=== PATIENT | female | born 1965 | race Caucasian/White ===

== ENCOUNTER 2017-11-02 08:11 | Emergency (ER) | payer OTHER ==
[2017-11-02] MEDS ORDERED: Albuterol/Ipratropium 3.0-0.5 MG/3 ML Neb Soln NEB ONE (08:33)
--- NOTE | 2017-11-02 08:52 | EDM.PDOC ---
ED HPI GENERAL MEDICAL PROBLEM - General Chief Complaint: Respiratory Problem Stated Complaint: BREATHING ISSUES Time Seen by Provider: 11/02/17 08:30 Source of Information: Reports: Patient, Family History Limitations: Reports: No Limitations - History of Present Illness INITIAL COMMENTS - FREE TEXT/NARRATIVE: 52-year-old female smoker who has a tendency towards reactive airway disease but not diagnosed with asthma caught a cold 3 or 4 days ago and it has worked its way into her lungs and she is having difficulty breathing. No fevers or chills. Cough is nonproductive. Denies sore throat but does have a congested nose and generalized malaise. Onset: Gradual (Over the past 4 days) Severity: Mild Associated Symptoms: Reports: Cough, Shortness of Breath. Denies: Fever/Chills , Nausea/Vomiting - Related Data Allergies Allergy/AdvReac Type Severity Reaction Status Date / Time No Known Allergies Allergy Verified 11/02/17 08:18 Home Meds: Home Meds NK [No Known Home Meds] 11/02/17 [History] Past Medical History - Past Health History Medical/Surgical History: Denies Medical/Surgical History Social & Family History - Tobacco Use Smoking Status *Q: Current Every Day Smoker Years of Tobacco use: 30 Packs/Tins Daily: 1 - Alcohol Use Number of Drinks Per Day: 3 - Recreational Drug Use Recreational Drug Use: No ED ROS GENERAL - Review of Systems Review Of Systems: See Below Constitutional: Reports: Chills, Malaise. Denies: Fever HEENT: Reports: Sinus Problem. Denies: Ear Pain Respiratory: Reports: Shortness of Breath, Cough Cardiovascular: Denies: Chest Pain GI/Abdominal: Denies: Abdominal Pain, Nausea, Vomiting Neurological: Denies: Headache ED EXAM, GENERAL - Physical Exam Exam: See Below Exam Limited By: No Limitations General Appearance: Alert, Mild Distress (Patient is fairly short of breath with some increased work of breathing, O2 sats 91%) Throat/Mouth: Normal Inspection Head: Atraumatic Respiratory/Chest: Wheezing (Diffuse inspiratory next very wheezing is present.) Cardiovascular: Regular Rate, Rhythm Neurological: Alert, Oriented Course - Vital Signs Last Recorded V/S: Last Vital Signs Temp 99.2 F 11/02/17 08:19 Pulse 92 11/02/17 08:45 Resp 19 11/02/17 08:19 BP 149/82 H 11/02/17 08:19 Pulse Ox 91 L 11/02/17 08:19 - Orders/Labs/Meds Orders: Active Orders 24 hr Category Date Time Status RT Aerosol Therapy [RC] ASDIRECTED Care 11/02/17 08:34 Active Meds: Medications Discontinued Medications Generic Name Dose Route Start Last Admin Trade Name Hood PRN Reason Stop Dose Admin Albuterol/Ipratropium 3 ml 11/02/17 08:33 11/02/17 08:42 Duoneb 3.0-0.5 Mg/3 Ml NEB 11/02/17 08:34 3 ml ONETIME ONE Administration - Re-Assessments/Exams Free Text/Narrative Re-Assessment/Exam: 11/02/17 08:51 Patient was given a DuoNeb. 11/02/17 08:59 Patient had subjective improvement after the DuoNeb, felt she was moving air much more freely. She also had objective less wheezing. She'll be discharged with an albuterol inhaler, prednisone 50 mg daily and a course of Zithromax. Departure - Departure Time of Disposition: 09:30 Disposition: Home, Self-Care 01 Condition: Good Clinical Impression: Bronchitis - Discharge Information Instructions: Acute Bronchitis, Adult, [id number] Referrals: PCP,None [Primary Care Provider] - Forms: ED Department Discharge Care Plan Goals: Activity as tolerated, try to decrease smoking, and take medications as directed. 5 pills of prednisone each morning for the next 3-6 days will be very helpful, and take entire course of Zithromax. Use inhaler as needed, and return if worsening despite treatment. - My Orders Last 24 Hours: My Active Orders 11/02/17 08:34 RT Aerosol Therapy [RC] ASDIRECTED - Assessment/Plan Last 24 Hours: My Active Orders 11/02/17 08:34 RT Aerosol Therapy [RC] ASDIRECTED
== END 2017-11-02 09:31 | disposition home or self-care (01) ==
LOC: JP.ED 08:11
DX: J40 Bronchitis, not specified as acute or chronic (principal); F17.210 Nicotine dependence, cigarettes, uncomplicated
CPT/HCPCS: 94640; 99285-25; J7620-GY